=== PATIENT | male | born 1995 | race Caucasian/White ===

== ENCOUNTER 2021-09-16 07:29 | Outpatient (REF) | payer BC, SELFPAY ==
--- NOTE | ~2021-09-16 | CT_ITS ---
EXAMINATION: CT MAXILLOFACIAL WITHOUT CONTRAST CLINICAL INFORMATION: Nasal polyps. COMPARISON: None available. TECHNIQUE: Multidetector helical imaging was performed in the axial plane with generation of coronal and sagittal reformatted images. This CT examination was performed using dose optimization techniques as appropriate, variously including the following: *Automated exposure control. *Adjustment of mA and/or kV according to patient size (this includes techniques or standardized protocols for targeted exams where dose is matched to indication/reason for exam; i.e. extremities or head). *Use of iterative reconstruction technique. DLP: 94 mGy-cm FINDINGS: FRONTAL SINUSES AND DRAINAGE PATHWAYS: The frontal sinuses are clear. The frontoethmoidal recesses are patent. MAXILLARY SINUSES AND DRAINAGE PATHWAYS: Mild polypoid mucosal thickening of the maxillary sinuses. The maxillary ostia and infundibula are patent. ETHMOID SINUSES: Mild mucosal thickening of the ethmoid air cells. The ethmoid roofs appear symmetric and intact. SPHENOID SINUS AND DRAINAGE PATHWAYS: The sphenoid sinus is clear. The sphenoethmoidal recesses are patent. NASAL PASSAGE: Mild to moderate mucosal thickening of the nasal passages. Left-sided nabil bullosa. Mild leftward nasal septal deviation inferiorly and moderate rightward nasal septal deviation superiorly. ADDITIONAL RELEVANT FINDINGS: The lamina papyracea are intact. No demonstrated abnormalities of the orbits. The carotid canals are normally covered by bone. No significant maxillary periapical disease. The temporomandibular joints are normal. The mastoid air cells and middle ear cavities remain well aerated. Limited evaluation of the intracranial structures without significant abnormalities. CT/CT sinus wo con IMPRESSION: 1. Mild sinonasal mucosal disease. 2. Sinusoidal deviation of the nasal septum. Left-sided nabil bullosa.
== END 2021-09-16 07:30 | disposition home or self-care (01) ==
LOC: HO.CT 07:29
PROVIDERS: PCP Otolaryngology; Visit Provider Otolaryngology
DX: J33.0 Polyp of nasal cavity (principal)
CPT/HCPCS: 70486

== ENCOUNTER 2021-10-08 12:21 | Outpatient (REF) | payer BC, SELFPAY | END 2021-10-08 12:22 | disposition home or self-care (01) | LOC: HO.LNP 12:21 | PROVIDERS: Visit Provider Otolaryngology | DX: B48.8 Other specified mycoses (principal) | CPT/HCPCS: 87071; 87077; 87102; 87186; 87205 ==

== ENCOUNTER 2022-08-08 14:36 | Outpatient (REF) | payer BC, SELFPAY | END 2022-08-08 14:37 | disposition home or self-care (01) | LOC: HO.MDS 14:36 | PROVIDERS: Visit Provider Internal Medicine | DX: K50.90 Crohn's disease, unspecified, without complications (principal) | CPT/HCPCS: 96365; J3380 ==

== ENCOUNTER 2022-08-22 13:45 | Outpatient (REF) | payer BC, SELFPAY | END 2022-08-22 13:46 | disposition home or self-care (01) | LOC: HO.MDS 13:45 | PROVIDERS: Visit Provider Internal Medicine | DX: K50.90 Crohn's disease, unspecified, without complications (principal) | CPT/HCPCS: 96365; J3380 ==

== ENCOUNTER 2022-09-19 14:19 | Outpatient (REF) | payer BC, SELFPAY | END 2022-09-19 14:20 | disposition home or self-care (01) | LOC: HO.MDS 14:19 | PROVIDERS: Visit Provider Internal Medicine | DX: K50.90 Crohn's disease, unspecified, without complications (principal) | CPT/HCPCS: 96365; J3380 ==

== ENCOUNTER 2023-02-20 14:45 | Outpatient (REF) | payer OTHER, SELFPAY | END 2023-02-20 14:46 | disposition home or self-care (01) | LOC: HO.MDS 14:45 | PROVIDERS: Visit Provider Internal Medicine | DX: K50.90 Crohn's disease, unspecified, without complications (principal) | CPT/HCPCS: 96365; J3380 ==

== ENCOUNTER 2023-07-28 13:11 | Outpatient (RCR) | payer OTHER, SELFPAY ==
[2023-07-28 13:12] VITALS: BP 144/73; PULSE 88; RESP 16; TEMP 36.3; O2SAT 96; BMI 34.9
--- NOTE | 2023-07-28 13:23 | HO.INF ---
tspot ordered for stelara infusion. phlebotomy notified.
[2023-07-28 13:49] VITALS: BP 142/68; PULSE 87
[2023-07-28] MEDS: Ustekinumab 520 MG in 0.9 % Sodium Chloride 146 ML 250 MG IV (13:51)
[2023-07-28 14:19] VITALS: BP 144/78; PULSE 80
[2023-07-28 14:50] VITALS: BP 140/71; PULSE 84; RESP 16
[2023-07-30 22:39] LABS: TS Negative Control Passed; TS Panel A 0; TS Panel B 3; TS Positive Control Passed; TSpotTB Negative (Negative)
== END 2023-07-28 15:03 | disposition home or self-care (01) ==
LOC: HO.INF 13:11
PROVIDERS: Visit Provider Internal Medicine
DX: K50.90 Crohn's disease, unspecified, without complications (principal); Z11.1 Encounter for screening for respiratory tuberculosis
CPT/HCPCS: 36415; 86481; 96365; J3358

== ENCOUNTER 2023-11-18 13:35 | Outpatient (REF) | payer OTHER, SELFPAY ==
[2023-11-18 13:51] LABS: MANUAL DIFF FLAG NO
[2023-11-18 14:10] LABS: Basophils Absolute Auto 0.1 X10*3/uL (0.0-0.2); Basophils Percent Auto 1.3 % (0-2); Eosinophils Absolute Auto 0.9 X10*3/uL (0.0-0.4); Eosinophils Percent Auto 10.4 % (0-4); Hematocrit 40.9 % (42.0-52.0); Hemoglobin 13.3 g/dl (14.0-18.0); Imm Gran Abs Auto 0.05 X10*3/uL (0.00-0.03); Imm Gran Pct Auto 0.6 % (0.0-0.4); Lymphocytes Absolute Auto 1.8 X10*3/uL (1.2-4.9); Lymphocytes Percent Auto 22.4 % (20-40); Mean Corpuscular HGB Conc 32.5 g/dl (31.0-36.0); Mean Corpuscular Hemoglobin 26.9 pg (27.0-33.0); Mean Corpuscular Volume 82.6 fL (80.0-98.0); Mean Platelet Volume 8.8 fL (9.4-12.4); Monocytes Absolute Auto 0.7 X10*3/uL (0.1-1.2); Monocytes Percent Auto 8.3 % (2-11); Neutrophils Absolute Auto 4.6 x10*3/uL (2.0-8.3); Platelet Count 357 X10*3/uL (160-400); Red Blood Count 4.95 X10*6/uL (4.60-5.80); Red Cell Distribution Width 13.5 % (11.0-16.0); White Blood Count 8.2 X10*3/uL (4.8-10.8)
[2023-11-18 14:37] LABS: Alanine Aminotransferase 23 U/L (0-40); Albumin Level 4.3 g/dL (3.5-5.0); Alkaline Phosphatase 74 U/L (39-117); Anion Gap 11 (12-20); Aspartate Amino Transferase 18 U/L (5-37); Bilirubin Direct 0.1 mg/dL (0.0-0.5); Bilirubin Total 0.3 mg/dL (0.0-1.0); Blood Urea Nitrogen 11 mg/dL (9-16); Calcium 9.6 mg/dL (8.4-10.2); Carbon Dioxide 28 mmol/L (22-29); Chloride 103 mmol/L (96-108); Estimated Glomerular Filt Rate > 60; Glucose Random 91 mg/dL (60-115); Potassium 4.2 mmol/L (3.3-5.1); Sodium 138 mmol/L (135-145); Total Protein 8.1 g/dL (6.5-8.0)
[2023-11-18 14:53] LABS: Erythrocyte Sedimentation Rate 14 MM/HR (0-15)
== END 2023-11-18 13:36 | disposition home or self-care (01) ==
LOC: HO.LAB 13:35
PROVIDERS: Visit Provider Internal Medicine
DX: K50.80 Crohn's disease of both small and large intestine without complications (principal)
CPT/HCPCS: 36415; 80048; 80076; 80299; 82542; 85025; 85652; 86140

== ENCOUNTER 2023-11-27 15:29 | Outpatient (REF) | payer OTHER, SELFPAY ==
[2023-12-05 23:28] LABS: Calprotectin, Fecal 314 mcg/g
== END 2023-11-27 15:30 | disposition home or self-care (01) ==
LOC: HO.LNP 15:29
PROVIDERS: Visit Provider Internal Medicine
DX: K50.80 Crohn's disease of both small and large intestine without complications (principal)
CPT/HCPCS: 83993

== ENCOUNTER 2024-05-31 12:12 | Outpatient (REF) | payer OTHER, SELFPAY ==
[2024-05-31 12:30] LABS: MANUAL DIFF FLAG NO
--- OUTSIDE RECORDS SUMMARY | 2024-05-31 13:10 | XMS_ITS ---
Author Organization [facility] Address [address] [place] [address] Care Team Providers Care Stock Control Supervisor Name Role Phone Edgardo Denis Primary Care Provider Alexander Hunt Unavailable [phone] REASON FOR VISIT Patient presents today for a f/u for crohns/stelara Encounters Encounter Location Date Provider Diagnosis [facility] [address] [place] [address] 12/25/2023 Alexander Becerril PLAN OF TREATMENT Next Appt Details Provider Name:Alexander Becerril , 01/04/2025 01:20:00 PM, [address], [address], [place], [address],
--- OUTSIDE RECORDS SUMMARY | 2024-05-31 13:10 | XMS_ITS ---
Author Organization [facility] Address [address] [place] [address] Care Team Providers Care Red Cap Name Role Phone Edgardo Denis Primary Care Provider Alexander Hunt Unavailable [phone] REASON FOR VISIT [place] needs to do these labs before his next Stelara injection/ update PROBLEMS Problem Type ICD Code Onset Dates Problem Status W/U Status Risk SNOMED Code Notes Problem Therapeutic drug monitoring (Z51.81) Active confirmed Drug monitoring done ([id number]) Encounters Encounter Location Date Provider Diagnosis [facility] [address] [place] [address] 01/22/2024 Alexander Becerril Crohn''s disease of both small and large intestine without complication K50.80 and Therapeutic drug monitoring Z51.81 ASSESSMENTS Encounter Date Diagnosis Assessment Notes Treatment Notes Treatment Clinical Notes 01/22/2024 Crohn''s disease of both small and large intestine without complication (ICD-10 - K50.80) 01/22/2024 Therapeutic drug monitoring (ICD-10 - Z51.81) PLAN OF TREATMENT Pending Test Test Name Order Date CHEM 7 PROFILE 01/22/2024 LIVER PROFILE 01/22/2024 CRP 01/22/2024 CBC w DIFF 01/22/2024 SED RATE (ESR) 01/22/2024 [facility] UST 01/22/2024 Next Appt Details Provider Name:Alexander Becerril , 01/04/2025 01:20:00 PM, [address], [address], [place], [address],
--- OUTSIDE RECORDS SUMMARY | 2024-05-31 13:10 | XMS_ITS | Clinical Summary ---
Author Organization [facility] Address [address] [place] [address] Phone Care Team Providers Care Compound Filler Name Role Phone Miguel Carrillo MD Primary Care Provider [phone] Immunizations Immunization Administration Dates Next Due HPV Vaccine 9 Valent 12/09/2017 Social History Tobacco Use Types Packs/Day Years Used Date Smoking Tobacco: Never Assessed Sex and Gender Information Value Date Recorded Sex Assigned at Not on file Legal Sex Male 4:48 PM EDT Gender Identity Not on file Sexual Orientation Not on file Last Filed Vital Signs Vital Sign Reading Time Taken Comments Blood Pressure - - Pulse - - Temperature 37.1 ??C (98.7 ??F) 12/09/2017 8:43 AM ED T Respiratory Rate - - Oxygen Saturation - - Inhaled Oxygen Concentration - - Weight - - Height - - Body Mass Index - - Plan of Treatment Health Maintenance Due Date Last Done Comments MMR Vaccines (1 of 1 - Stand sharonda series) 1994 Varicella Vaccines (1 of 2 - 13+ 2-dose series) 2006 DTaP,Tdap,and Td Vaccines (1 - Tdap) 2011 Hepatitis B Vaccines (1 of 3 - 19+ 3-dose series) 02/13/2012 HPV Vaccines (2 - Male 3-dos e series) 01/06/2018 12/09/2017 Influenza Vaccines (#1) 2023 COVID-19 Vaccine ( - 2023-2 5 season) 2023 HIB Vaccines Aged Out No longer eligi ble based on patient's age to complete this topic Hepatitis A Vaccines Aged Out No long er eligible based on patient's age to complete this topic IPV Vaccines Aged Out No longer eligi ble based on patient's age to complete this topic Men B Vaccine Aged Out No longer elig ible based on patient's age to complete this topic Meningococcal Vaccine Aged Out No jocelyn dilan eligible based on patient's age to complete this topic Pneumococcal Vaccine Aged Out No long er eligible based on patient's age to complete this topic [place] [address] [place] [address] Care Teams Compound Filler Relationship Specialty Start Date End Date Miguel Carrillo MD [facility] [place] [address] PCP - General Pediatrics 11/24/17
--- OUTSIDE RECORDS SUMMARY | 2024-05-31 13:11 | XMS_ITS | Clinical Summary ---
Author Organization [facility] [facility] Address [address] [facility] [place] [address] Care Team Providers Care Ice Rink Attendant Name Role Phone Pcp, No Primary Care Provider [phone] Social History Tobacco Use Types Packs/Day Years Used Date Smoking Tobacco: Never Assessed Sex and Gender Information Value Date Recorded Sex Assigned at Not on file Legal Sex Male 8:12 PM EDT Gender Identity Not on file Sexual Orientation Not on file Plan of Treatment Health Maintenance Due Date Last Done Comments Depression: Screening Annual ly using PHQ-2/9 in Adults 18 yrs or above (or HM Modifier)([facility]) 2011 Hepatitis C Virus Infection in Adolescents and Adults: Screening (or Modifier) ([facility]) 2011 SDOH Screening Reminder: Laura kaycee for all adults ([facility]) 2011 Tobacco Smoking Cessation: i n Adults excluding Women: Behavioral and Pharmacotherapy Interventions ([facility]) 2011 DTaP/Tdap/Td Vaccines ([facility]) (1 - Tdap) 02/13/2012 Lipid Screening: Once for Me n aged 20 to 35 yrs ([facility]) 2013 Flu Vaccination: Yearly for ages 18mos through 64 years (or Modifier)([facility]) 11/12/2023 COVID-19 Vaccine Screening: Initial Series and Booster Status ([facility]) (2023- season) 2023 Zoster/Shingles Vaccine Seri es Screening: Adults aged 18+ yrs (or HM Modifiers)([facility]) (1 of 2) 2043 Pneumococcal Vaccination Scr eening: Pts 0-19 & 19-64 yrs of age ([facility]) Aged Out No longer eligible based on patient's age to complete this topic Medical Devices Not on file Insurance [facility] [address] [place] [address] Care Teams Ice Rink Attendant Relationship Specialty Start Date End Date Pcp, No PCP - General Family Medicine 07/27/20
--- OUTSIDE RECORDS SUMMARY | 2024-05-31 13:11 | XMS_ITS ---
Author Organization [facility] Address [address] [place] [address] Care Team Providers Care Caster Helper Name Role Phone Edgardo Denis Primary Care Provider Alexander Hunt Unavailable [phone] ALLERGIES Allergen (clinical drug ingredient) Drug/Non Drug Allergy documented on EMR Reaction Allergy Type Onset Date Status tree nuts (uncoded) Unknown Allergy Active REASON FOR VISIT Patient presents today for crohn's MEDICATIONS Medication SIG (Take, Route, Frequency, Duration) Notes Start Date End Date Status Humira Pen 40 MG/0.8ML 1 pen Subcutaneou s weekly for 28 Not-Taking Probiotic Not-Taking azaTHIOprine 100 MG 1 1/2 pills Orally Q D for 90 days 08/30/2015 Not-Taking Methylphenidate HCl ER 20 MG TAKE 1 TABLET BY MOUTH EVERY DAY IN THE MORNING Oral for 30 Active Mesalamine ER 0.375 GM TAKE 4 CAPSULES B Y MOUTH EVERY DAY Oral for 90 Active Stelara 130 MG/26ML Four 130mg/26ml solutions(520mg total) Intravenous Once for 1 days 05/26/2023 Active Humira Pen 40 MG/0.8ML 0.8 cc Subcutaneo us weekly Not-Taking Apriso 0.375 GM 4 capsules in the morning Orally Once a day for 90 days 09/27/2019 Not-Taking Apriso 0.375 GM 4 capsules in the morning Orally Once a day for 90 days 03/20/2021 Active Apriso 0.375 GM 4 capsules in the morning Orally Once a day for 90 days 04/03/2021 Active Apriso 0.375 GM 4 capsules in the morning Orally Once a day for 30 day(s) Active Iron 65mg Active Imodium A-D 2 MG 2 tablets Orally QAM Active Vitamin C 500mg Acti ve Multi Vitamin/Minerals Active IMMUNIZATIONS Vaccine Route Administration Date Status Comme nts Influenza Unknown 04/20/2024 Refused SOCIAL HISTORY Sex Assigned At : Social History Observation Description Sex Assigned At Unknown Alcohol Screen Question Answer Notes Did you have a drink contain ing alcohol in the past year? Yes How often did you have a dri nk containing alcohol in the past year? 2 to 4 times a month (2 points) How many drinks did you have on a typical day when you were drinking in the past year? 3 or 4 drinks (1 point) How often did you have 6 or more drinks on one occasion in the past year? Never (0 point) Points 3 Interpretation Negative VITAL SIGNS BMI 37.37 kg/m2 04/20/2024 Blood pressure systolic 000 mm Hg 04/20/19 25 Blood pressure diastolic 00 mm Hg 025 Height 64.5 in 04/20/2024 Temperature 98.2 degrees Fahrenheit 04/20/19 25 Weight 221 lb 2 oz lbs 04/20/2024 Encounters Encounter Location Date Provider Diagnosis [facility] [address] [place] [address] 04/20/2024 Alexander Becerril Crohns disease of césar th small and large intestine without complication K50.80 ASSESSMENTS Encounter Date Diagnosis Assessment Notes Treatment Notes Treatment Clinical Notes 04/20/2024 Crohns disease of both small and large intestine without complication (ICD-10 - K50.80) Continue the same regimen. Make sure you do the labs, including the Stelara level, 1 or 2 days before the next Stelara injection. If the level is still low I will increase it to every 4 weeks. PLAN OF TREATMENT Treatment Notes Assessment Notes Crohns disease of both small and large intestine without complication Continue the same regimen. Make sure you do the labs, including the Stelara level, 1 or 2 days before the next Stelara injection. If the level is still low I will increase it to every 4 weeks. Next Appt Details Follow Up: 2024, Mc n: Provider Name:Alexander Becerril , 01/04/2025 01:20:00 PM, [address], [address], [place], [address],
--- OUTSIDE RECORDS SUMMARY | 2024-05-31 13:11 | XMS_ITS | Patient Health Record ---
Author Organization [facility] Address [address] [place] [address] Care Team Providers Care Blueprint Trimmer Name Role Phone Edgardo Steele Primary Care Provider Alexander Hunt Unavailable [phone] ALLERGIES Allergen (clinical drug ingredient) Drug/Non Drug Allergy documented on EMR Reaction Allergy Type Onset Date Status tree nuts (uncoded) Unknown Allergy Active RESULTS Component Value Reference Range Notes T Spot TB Reviewed date:07/30/2023 10:44:52 PM Interpretation: Performing Lab:[facility], [address] [place] [phone] Notes/Report: TSpotTB Negative Negative A negative test result does not exclude the possibility of exposure to or infection with Mycobacterium tuberculosis (M. tuberculosis). Patients with recent exposure to TB infected individuals exhibiting a negative T-SPOT.TB result should be considered for retesting within 6 weeks or if other relevant clinical symptoms indicate. Results from T-SPOT.TB testing must be used in conjunction with each individual's epidemiological history, current medical status, and results of other diagnostic evaluations. The T-SPOT.TB test is qualitative and results are reported as positive, borderline, or negative, given that the test controls perform as expected. In line with the Centers for Disease Control and Prevention's 2010 recommendation to report quantitative measurements alongside the qualitative result, the laboratory provides spot counts for informational purposes only. The T-SPOT.TB test should not be interpreted as a quantitative test. TS Panel A 0 TS Panel B 3 TS Negative Control Passed TS Positive Control Passed For additional information, please refer to http://education.[employer].com/faq/AGA963 (This link is being provided for informational/ educational purposes only.) THIS TEST WAS PERFORMED AT: [facility] [id number] [place] [phone] CHANTEL OLSON MD,PHD Hortencia MAZARIEGOS (Not ye t reviewed by provider) Interpretation: Performing Lab:[facility], [address] [place] [phone] Notes/Report: Hortencia MAZARIEGOS SEE NOTE SEE SCA NNED RESULTS IN EMR Complete Blood Count Auto Di ff Reviewed date:11/18/2023 11:36:11 PM Interpretation: Performing Lab:[facility], [address] [place] [phone] Notes/Report: White Blood Count 8.2 4.8-10.8 X10*3/uL Red Blood Count 4.95 4.60-5.80 X10*6/uL Hemoglobin 13.3 14.0-18.0 g/dl Hematocrit 40.9 42.0-52.0 % Mean Corpuscular Volume 82.6 80.0-98.0 fL Mean Corpuscular Hemoglobin 26.9 27.0-33.0 pg Mean Corpuscular HGB Conc 32.5 31.0-36.0 g/dl Red Cell Distribution Width 13.5 11.0-16.0 % Platelet Count 357 160-400 X10*3/uL Mean Platelet Volume 8.8 9.4-12.4 fL Neutrophils Percent Auto 57.0 45-73 % Imm Gran Pct Auto 0.6 0.0-0.4 % Lymphocytes Percent Auto 22.4 20-40 % Monocytes Percent Auto 8.3 2-11 % Eosinophils Percent Auto 10.4 0-4 % Basophils Percent Auto 1.3 0-2 % NRBC Pct Auto 0.0 0.0-0.2 /100WBC Neutrophils Absolute Auto 4.6 2.0-8.3 x10*3/u L Imm Gran Abs Auto 0.05 0.00-0.03 X10*3/uL Lymphocytes Absolute Auto 1.8 1.2-4.9 X10*3/u L Monocytes Absolute Auto 0.7 0.1-1.2 X10*3/uL Eosinophils Absolute Auto 0.9 0.0-0.4 X10*3/u L Basophils Absolute Auto 0.1 0.0-0.2 X10*3/uL NRBC Abs Auto 0.000 0.0-0.012 X10*3/uL Erythrocyte Sedimentation Ra te Reviewed date:11/18/2023 11:37:26 PM Interpretation: Performing Lab:[address] [phone] Notes/Report: Erythrocyte Sedimentation Rate 14 0-15 MM/HR Patients with polycythemia and many hemoglobin abnormalities may have depressed sed rates whereas patients with anemia may have elevated sed rates. Liver Panel Reviewed date:11/18/2023 11:36:25 PM Interpretation: Performing Lab:[address] [phone] Notes/Report: Bilirubin Total 0.3 0.0-1.0 mg/dL Bilirubin Direct 0.1 0.0-0.5 mg/dL Aspartate Amino Transferase 18 5-37 U/L Alanine Aminotransferase 23 0-40 U/L Total Protein 8.1 6.5-8.0 g/dL Albumin Level 4.3 3.5-5.0 g/dL Alkaline Phosphatase 74 39-117 U/L Basic Metabolic Panel Reviewed date:11/18/2023 11:37:01 PM Interpretation: Performing Lab:[address] [phone] Notes/Report: Sodium 138 135-145 mmol/L Potassium 4.2 3.3-5.1 mmol/L Chloride 103 96-108 mmol/L Carbon Dioxide 28 22-29 mmol/L Anion Gap 11 12-20 Blood Urea Nitrogen 11 9-16 mg/dL Creatinine 0.81 0.5-1.4 mg/dL Estimated Glomerular Filt Rate > 60 NOTE: For -[place] individuals, multiply the result by 1.210. Chronic Kidney Disease: Estimated GFR < 60 mL/min/1.73m2 Severe Kidney Disease: Estimated GFR < 15 mL/min/1.73m2 Glucose Random 91 60-115 mg/dL Calcium 9.6 8.4-10.2 mg/dL C Reactive Protein Reviewed date:11/18/2023 11:37:08 PM Interpretation: Performing Lab:[address] [phone] Notes/Report: C Reactive Protein 1.00 < or = 0.50 mg/dL Calprotectin, Fecal Reviewed date:12/06/2023 02:45:33 PM Interpretation: Performing Lab:[facility], [address] [place] [phone] Notes/Report: Calprotectin, Fecal 314 Reference Range: <50 Normal 50-120 Borderline >120 Elevated Calprotectin in Crohn's disease and ulcerative colitis can be five to several thousand times above the reference population (50 mcg/g or less). Levels are usually 50 mcg/g or less in healthy patients and with irritable bowel syndrome. Repeat testing in 4-6 weeks is suggested for borderline values. THIS TEST WAS PERFORMED AT: [facility] [address] [place] [address] IJEOMA NICHOLSON MD,PHD,CONCHITA REASON FOR REFERRAL Referring Provider First Name Edgardo Referring Provider Last Name Adeel Referred Organization [facility] Referred Provider Alexander Becerril Referred Address [address] [place] [address],[place], [place],[address],[place] Referred Provider Specialty Gastroentero logy General Notes Paradise Pascual 024 10:26:41 AM EDT > requested a rust referral from Dr. Olivera office for visit with Dr. Becerril on 07-09-23 (really 07-28-23), Paradise Pascual 06/23/2023 04:22:29 PM EDT > Dr. steele out of network....pt moved to [facility],. Referral Priority Routine Referring Provider First Name Edgardo Referring Provider Last Name Adeel Referred Organization [facility] Referred Provider Alexander Becerril Referred Address [address] [place] [address],[place], [place],[address],[place] Referred Provider Specialty Gastroentero logy Referral Priority Routine MEDICATIONS Medication SIG (Take, Route, Frequency, Duration) Notes Start Date End Date Status Apriso 0.375 GM 4 capsules in the morning Orally Once a day for 90 days 03/20/2021 Active Stelara 130 MG/26ML Four 130mg/26ml solutions(520mg total) Intravenous Once for 1 days 05/26/2023 Active Apriso 0.375 GM 4 capsules in the morning Orally Once a day for 90 days 04/03/2021 Active Humira Pen 40 MG/0.8ML 0.8 cc Subcutaneo us weekly Not-Taking Apriso 0.375 GM 4 capsules in the morning Orally Once a day for 90 days 09/27/2019 Not-Taking Vitamin C 500mg Acti ve Humira Pen 40 MG/0.8ML 1 pen Subcutaneou s weekly for 28 Not-Taking Multi Vitamin/Minerals Active Probiotic Not-Taking azaTHIOprine 100 MG 1 1/2 pills Orally Q D for 90 days 08/30/2015 Not-Taking Methylphenidate HCl ER 20 MG TAKE 1 TABLET BY MOUTH EVERY DAY IN THE MORNING Oral for 30 Active Stelara 90 MG/ML INJECT 1 SYRINGE SUBCUTANEOUSLY EVERY 8 WEEKS for 56 Active Apriso 0.375 GM 4 capsules in the morning Orally Once a day for 30 day(s) Active Mesalamine ER 0.375 GM TAKE 4 CAPSULES B Y MOUTH EVERY DAY Oral for 90 Active Iron 65mg Active Imodium A-D 2 MG 2 tablets Orally QAM Active IMMUNIZATIONS Vaccine Route Administration Date Status Comme nts Influenza Unknown 04/13/2019 Administered Influenza Unknown 02/07/2021 Administered Influenza Unknown 04/20/2024 Refused SOCIAL HISTORY Sex [...] Never (0 point) Points 3 Interpretation Negative PROBLEMS Problem Type ICD Code Onset Dates Problem Status W/U Status Risk SNOMED Code Notes Problem Diarrhea (R19.7) Active confirmed 46363 008 Problem Crohn's disease of both small and large intestine without complication (K50.80) Active confirmed 25768653 Problem Crohn's disease of both small and large intestine without complications (K50.80) Active confirmed 85349626 Problem Crohns disease of both small and large intestine without complication (K50.80) Active confirmed 40912358 Problem Diarrhea, unspecified type (R19.7) Active confirmed 13051767 Problem Therapeutic drug monitoring (Z51.81) Active confirmed Drug monitoring done (873724202) Problem Crohn''s disease of both small and large intestine without complication (K50.80) Active confirmed Crohn's disease of small AND large intestines (50479498) Problem Abdominal discomfort, generalized (R10.84) Active confirmed 06205087 VITAL SIGNS Temperature 98.2 degrees Fahrenheit 04/20/2024 Blood pressure diastolic 00 mm Hg 04/20/2024 Height 64.5 in 04/20/2024 Blood pressure systolic 000 mm Hg 04/20/2024 Weight 221 lb 2 oz lbs 04/20/2024 BMI 37.37 kg/m2 04/20/2024 Encounters Encounter Location Date Provider Diagnosis [facility] [address] [place] [phone] 07/28/2023 Alexander Becerril [facility] [address] [place] [phone] 12/25/2023 Alexander Becerril [facility] [address] [place] [phone] 04/20/2024 Alexander Becerril Crohns disease of [facility] small and large intestine without complication K50.80 [facility] [address] [place] [id number] 07/21/2023 Alexander Becerril [facility] [address] [place] [phone] 07/22/2023 Alexander Becerril [facility] [address] [place] [phone] 08/28/2023 Alexander Becerril [facility] [address] [place] [phone] 11/13/2023 Alexander Becerril [facility] [address] [place] [phone] 12/16/2023 Alexander Becerril [facility] [address] [place] [phone] 01/22/2024 Alexander Becerril Crohn''s disease of both [...] will increase it to every 4 weeks. 01/22/2024 Therapeutic drug monitoring (ICD-10 - Z51.81) 01/22/2024 Crohn''s disease of both small and large intestine without complication (ICD-10 - K50.80) PLAN OF TREATMENT Pending Test Test Name Order Date CHEM 7 PROFILE 11/14/2022 CHEM 7 PROFILE 03/06/2020 CHEM 7 PROFILE 05/01/2021 CHEM 7 PROFILE 01/22/2024 CHEM 7 PROFILE 07/08/2017 CHEM 7 PROFILE 01/07/2017 CHEM 7 PROFILE 02/07/2021 CHEM 7 PROFILE 09/27/2019 LIVER PROFILE 02/07/2021 LIVER PROFILE 09/27/2019 LIVER PROFILE 12/29/2014 LIVER PROFILE 12/02/2011 LIVER PROFILE 11/14/2022 LIVER PROFILE 05/28/2016 LIVER PROFILE 09/09/2018 LIVER PROFILE 03/06/2020 LIVER PROFILE 05/01/2021 LIVER PROFILE 04/20/2012 LIVER PROFILE 07/15/2013 LIVER PROFILE 10/15/2015 LIVER PROFILE 01/22/2024 LIVER PROFILE 07/08/2017 LIVER PROFILE 01/07/2017 LIVER PROFILE 02/22/2016 AMYLASE 05/01/2021 LIPASE 05/01/2021 IRON + IBC (FE) 01/07/2017 IRON + IBC (FE) 09/27/2019 IRON + IBC (FE) 02/07/2021 IRON + IBC (FE) 09/24/2011 IRON + IBC (FE) 03/06/2020 IRON + IBC (FE) 04/20/2012 IRON + IBC (FE) 07/08/2017 FERRITIN 07/08/2017 FERRITIN 01/07/2017 FERRITIN 09/27/2019 FERRITIN 02/07/2021 FERRITIN 09/24/2011 FERRITIN 03/06/2020 FERRITIN 04/20/2012 CRP 03/06/2020 CRP 05/01/2021 CRP 07/08/2017 CRP 08/30/2015 CRP 03/01/2015 CRP 11/14/2022 CRP 09/27/2019 CRP 02/07/2021 CRP 10/15/2015 CRP 01/22/2024 VITAMIN B12 AND FOLATE 03/06/2020 VITAMIN B12 AND FOLATE 06/24/2011 VITAMIN B12 AND FOLATE 07/08/2017 VITAMIN B12 AND FOLATE 09/27/2019 VITAMIN B12 AND FOLATE 02/07/2021 B12 04/20/2012 CBC w DIFF 09/24/2011 CBC w DIFF 02/22/2016 CBC w DIFF 10/15/2015 CBC w DIFF 01/22/2024 CBC w DIFF 12/29/2014 CBC w DIFF 04/20/2012 CBC w DIFF 12/02/2011 CBC w DIFF 05/01/2021 CBC w DIFF 01/07/2017 CBC w DIFF 03/06/2020 CBC w DIFF 05/28/2016 CBC w DIFF 09/09/2018 CBC w DIFF 11/14/2022 CBC w DIFF 07/08/2017 CBC w DIFF 07/15/2013 CBC w DIFF 02/07/2021 CBC with MANUAL DIFFERENTIAL 09/27/2019 SED RATE (ESR) 09/27/2019 SED RATE (ESR) 02/07/2021 SED RATE (ESR) 10/15/2015 SED RATE (ESR) 01/22/2024 SED RATE (ESR) 05/01/2021 SED RATE (ESR) 08/30/2015 SED RATE (ESR) 03/06/2020 SED RATE (ESR) 03/01/2015 SED RATE (ESR) 11/14/2022 SED RATE (ESR) 07/08/2017 HEPATITIS B PROFILE 06/20/2022 HEPATITIS B SURFACE ANTIGEN 06/20/2022 C-REACTIVE PROTEIN FLUID 06/24/2011 PROMETHEUS THIOPURINE METABOLITES (TPMT) 10/15/2015 PROMETHEUS THIOPURINE METABOLITES (TPMT) 11/09/2015 PROMETHEUS THIOPURINE METABOLITES (TPMT) 03/01/2015 PROMETHEUS TPMT ENZYME 03/01/2015 PROMETHEUS TPMT GENETICS 03/01/2015 HUMIRA LEVEL/AB (ADALIMUMAB LEVEL/AB) HUMIRA LEVEL/AB (ADALIMUMAB LEVEL/AB) STOOL WBC 06/20/2022 C DIFFICILE RFLX PCR 06/20/2022 [employer] UST 11/14/2022 [facility] UST 11/18/2023 [facility] UST 01/22/2024 Calprotectin, Fecal 11/14/2022 Calprotectin, Fecal 06/20/2022 GI PANEL 06/20/2022 Future Test Test Name Order Date COLONOSCOPY 04/20/2012 COLONOSCOPY 05/05/2019 Next Appt Details Provider Name:Alexander Becerril , 01/04/2025 01:20:00 PM, [address] [facility], [address], [place], [address], Insurance Providers Payer Name Payer Address Payer Phone Subscriber Number Group Number Insured Name Patient Relationship to Insured Coverage Start Date Coverage End Date [employer] [address] [place] [phone] [id number] ALYSSA GRIFFITHS Self - patient is the insured MEDICAL (GENERAL) HISTORY Medical History History ICD Code Crohn's disease, diagnosed b etween 6th and 9th grades-has had a perirectal abscess; had an EGD and colonoscopy in [address] Collins-showed Crohn's in TI, colon(diffusely) and ? in duodenum--subsequently followed by Dr. Wyman--started on Imuran in 2010, along with a trial of Remicade until early 2011--was hospitalized at [facility] in early 2011 and treated with steroids--Remicade was stopped, and he was started on Humira in spring and Azathioprine in summer. The last time he was on prednisone was at the end of 2011. His Humira was increased to a weekly injection in February 2015. He stopped the azathioprine and 2016. Came off humira and Apriso in summer 2019 due to lapse in insurnce. He was able to resume his previous Humira regimen and Apriso in early 07/2020. Denies MT,DM,CVA,Lung disease,renal dise ase Colonoscopy in 04/2012 with a ctive Crohn's from rectum to 30 cm--normal proximal colon and TI; similar findings on colonoscopy in 09/2019-bx neg for dysplasia COVID in early 2021 Surgical History Surgery Date(Month/Year) Perirectal abscess
[2024-05-31 13:18] LABS: Basophils Absolute Auto 0.1 X10*3/uL (0.0-0.2); Basophils Percent Auto 0.9 % (0-2); Eosinophils Absolute Auto 0.2 X10*3/uL (0.0-0.4); Eosinophils Percent Auto 2.3 % (0-4); Hematocrit 40.5 % (42.0-52.0); Hemoglobin 13.4 g/dl (14.0-18.0); Imm Gran Abs Auto 0.03 X10*3/uL (0.00-0.03); Imm Gran Pct Auto 0.4 % (0.0-0.4); Lymphocytes Absolute Auto 2.2 X10*3/uL (1.2-4.9); Lymphocytes Percent Auto 29.3 % (20-40); Mean Corpuscular HGB Conc 33.1 g/dl (31.0-36.0); Mean Corpuscular Hemoglobin 27.4 pg (27.0-33.0); Mean Corpuscular Volume 82.8 fL (80.0-98.0); Mean Platelet Volume 9.5 fL (9.4-12.4); Monocytes Absolute Auto 0.7 X10*3/uL (0.1-1.2); Monocytes Percent Auto 9.6 % (2-11); Neutrophils Absolute Auto 4.3 x10*3/uL (2.0-8.3); Neutrophils Percent Auto 57.5 % (45-73); Platelet Count 421 X10*3/uL (160-400); Red Blood Count 4.89 X10*6/uL (4.60-5.80); Red Cell Distribution Width 13.5 % (11.0-16.0); White Blood Count 7.4 X10*3/uL (4.8-10.8)
[2024-05-31 13:49] LABS: Alanine Aminotransferase 24 U/L (0-40); Albumin Level 4.3 g/dL (3.5-5.0); Alkaline Phosphatase 68 U/L (39-117); Anion Gap 12 (12-20); Aspartate Amino Transferase 24 U/L (5-37); Bilirubin Direct 0.2 mg/dL (0.0-0.5); Bilirubin Total 0.5 mg/dL (0.0-1.0); Blood Urea Nitrogen 12 mg/dL (9-16); C Reactive Protein 0.95 mg/dL (< or = 0.50); Calcium 9.1 mg/dL (8.4-10.2); Carbon Dioxide 28 mmol/L (22-29); Chloride 104 mmol/L (96-108); Estimated Glomerular Filt Rate > 60; Glucose Random 91 mg/dL (60-115); Potassium 4.3 mmol/L (3.3-5.1); Sodium 140 mmol/L (135-145); Total Protein 8.3 g/dL (6.5-8.0)
[2024-05-31 13:58] LABS: Erythrocyte Sedimentation Rate 13 MM/HR (0-15)
== END 2024-05-31 12:13 | disposition home or self-care (01) ==
LOC: HO.LAB 12:12
PROVIDERS: PCP Family Medicine; Visit Provider Internal Medicine
DX: K50.80 Crohn's disease of both small and large intestine without complications (principal); Z51.81 Encounter for therapeutic drug level monitoring
CPT/HCPCS: 36415; 80053; 80299; 82248; 82542; 85025; 85652; 86140

== ENCOUNTER 2024-08-05 10:38 | Outpatient (REF) | payer OTHER, SELFPAY ==
--- OUTSIDE RECORDS SUMMARY | 2024-08-05 11:18 | XMS_ITS | Clinical Summary ---
Author Organization [facility] Address [address] [place] [address] Phone Care Team Providers Care Commercial Administrator Name Role Phone Miguel Carrillo MD Primary Care Provider [phone] Immunizations Immunization Administration Dates Next Due HPV [...] patient's age to complete this topic Insurance [place] [address] Care Teams Commercial Administrator Relationship Specialty Start Date End Date Miguel Carrillo MD [facility] [place] [address] PCP - General Pediatrics 11/24/17
== END 2024-08-05 10:39 | disposition home or self-care (01) ==
LOC: HO.LAB 10:38
PROVIDERS: PCP Family Medicine; Visit Provider Internal Medicine
DX: Z51.81 Encounter for therapeutic drug level monitoring (principal); K50.80 Crohn's disease of both small and large intestine without complications
CPT/HCPCS: 36415; 80299; 82542